=== PATIENT | male | born 1955 | race Native Hawaiian/Other Pacific Islander ===

== ENCOUNTER 2017-03-02 21:16 | Emergency (ER) | payer OTHER ==
[~2017-03-02] VITALS: Ht 182.9 cm; Wt 136.1 kg
[~2017-03-02 21:16] MED LIST: ASA LO-DOSE81 MG PO; CARV12.5 PO; COLC0.6T6 PO; HYDR25TA60 PO; LIPITOR40 MG PO; LYRICA50 MG PO
[2017-03-02 22:22] LABS: PLATELET COUNT 201 K/uL (142-355)
[2017-03-02 22:43] LABS: POTASSIUM 3.4 mmol/L (3.6-5.2)
[2017-03-03 07:11] VITALS: BP 153/86; TEMP 97.9
== END 2017-03-03 07:18 | disposition home or self-care (01) ==
LOC: ED 21:16
PROVIDERS: Specialist
DX: I50.9 Heart failure, unspecified (principal); R00.1 Bradycardia, unspecified
CPT/HCPCS: 36415; 80053; 82550; 82553; 83735; 84100; 84484; 85027; 99283; J1940

== ENCOUNTER 2017-03-08 14:24 | Outpatient (CLI) | payer OTHER ==
[2017-03-08 14:58] LABS: POTASSIUM 3.5 mmol/L (3.6-5.2)
== END 2017-03-08 15:30 | disposition home or self-care (01) ==
LOC: LABW 14:24
PROVIDERS: Internal Medicine Cardiovascular Disease
DX: I50.9 Heart failure, unspecified (principal)
CPT/HCPCS: 36415; 80048; 83880

== ENCOUNTER 2018-10-09 00:04 | Emergency (ER) | payer OTHER ==
[~2018-10-09] VITALS: Ht 177.8 cm; Wt 133.8 kg
[2018-10-09 00:58] LABS: PLATELET COUNT 224 K/uL (142-355)
[2018-10-09 01:01] LABS: POTASSIUM 3.4 mmol/L (3.6-5.2); SODIUM 139 mmol/L (136-145)
[2018-10-09 01:57] VITALS: BP 120/68; TEMP 98.1
== END 2018-10-09 02:02 | disposition home or self-care (01) ==
LOC: ED 00:04
DX: I20.8 Other forms of angina pectoris (principal); I25.10 Atherosclerotic heart disease of native coronary artery without angina pectoris; I49.8 Other specified cardiac arrhythmias
CPT/HCPCS: 36415; 80053; 81000; 82550; 82553; 84484; 85027; 86318; 93005; 99283

== ENCOUNTER 2023-11-14 06:58 | Emergency (ER) | payer OTHER ==
[~2023-11-14] VITALS: Ht 177.8 cm; Wt 134.7 kg
[2023-11-14 07:01] VITALS: TEMP 98.4
[2023-11-14 07:38] LABS: PLATELET COUNT 209 K/uL (142-355)
[2023-11-14 07:43] LABS: POTASSIUM 4.1 mmol/L (3.6-5.2)
[2023-11-14] MEDS ORDERED: TORADOL 60MG/2ML INJ IM ONE ×2 (08:14)
[2023-11-14] MEDS ORDERED: MELATONIN1 MG PO (08:57)
[2023-11-14] MEDS ORDERED: OMEPRAZOLE DR20 MG PO (08:58)
[2023-11-14] MEDS ORDERED: COZAAR25 MG PO (08:58)
[2023-11-14] MEDS ORDERED: ALLO100T22 PO (08:59)
[2023-11-14] MEDS ORDERED: FUROSEMIDE80 MG PO (09:00)
[2023-11-14 09:30] VITALS: BP 168/82
== END 2023-11-14 10:10 | disposition home or self-care (01) ==
LOC: ED 06:58
PROVIDERS: Family Medicine
DX: R10.30 Lower abdominal pain, unspecified (principal); N50.819 Testicular pain, unspecified; R39.11 Hesitancy of micturition; N50.89 Other specified disorders of the male genital organs; N32.89 Other specified disorders of bladder
CPT/HCPCS: 80053; 81000; 85027; 96372; 99284; J1885; Q9963